=== PATIENT | female | born 1980 | race Caucasian/White ===

== ENCOUNTER 2023-03-20 13:34 | Inpatient (IN) | payer MEDICAID, OTHER ==
[~2023-03-20] VITALS: Ht 160 cm; Wt 83.9 kg
[~2023-03-20 13:34] MED LIST: DOCU-385 PO; FERR325T27 PO; FLUO20CA36 PO
[2023-03-20 15:34] LABS: BASOPHILS % (AUTO) 0.6 % (0.0-2.0); EOSINOPHILS % (AUTO) 1.6 % (1.0-6.0); HEMATOCRIT 28.5 % (36-46); HEMOGLOBIN 8.9 g/dL (12.0-16.0); LYMPHOCYTES # (AUTO) 1.6 K/uL (1.0-4.8); LYMPHOCYTES % (AUTO) 37.2 % (22.0-44.0); MEAN CORPUSCULAR HGB CONC 31.3 G/dL (31.0-37.0); MEAN CORPUSCULAR VOLUME 70 fL (80-100); MONOCYTES # (AUTO) 0.3 K/uL (0.1-1.0); MONOCYTES % (AUTO) 7.2 % (2.0-9.0); NEUTROPHILS # (AUTO) 2.2 K/uL (1.8-7.7); NEUTROPHILS % (AUTO) 53.4 % (40.0-70.0); PLATELET COUNT (AUTO) 279 K/uL (150-450); RED BLOOD CELL COUNT(AUTO) 4.06 MIL/uL (4.00-5.20); WHITE BLOOD COUNT (AUTO) 4.2 K/uL (4.5-11.0)
[2023-03-20 15:40] LABS: ANION GAP 11 mmol/L (8-16); CALCIUM, TOTAL 8.7 mg/dL (8.8-10.5); CARBON DIOXIDE 26 mmol/L (22-29); CHLORIDE 110 mmol/L (98-107); CREATININE 0.59 mg/dL (0.60-1.30); GLOMERULAR FILTR. RATE CALC > 60 mL/min (>60); GLUCOSE,RANDOM 95 mg/dL (70-110); POTASSIUM 3.8 mmol/L (3.5-5.1); SODIUM SERUM 147 mmol/L (136-145); UREA NITROGEN, BLOOD 7 mg/dL (7-18)
[2023-03-20 15:46] LABS: ALANINE AMINOTRANSFERASE 31 U/L (12-78); ALBUMIN 3.5 g/dL (3.4-5.0); ALKALINE PHOSPHATASE 105 U/L (46-116); ASPARTATE AMINOTRANSFERASE 34 U/L (15-37); BILIRUBIN,TOTAL 0.2 mg/dL (0.1-1.0); LIPASE 41 U/L (16-77); TOTAL PROTEIN, SERUM 7.1 g/dL (6.4-8.2)
[2023-03-20 15:47] LABS: ALCOHOL, BLOOD (SERUM) 255 mg/dL (0-10)
[2023-03-20 16:36] LABS: RBC MORPHOLOGY COMMENT DIMORPHIC RBC
[2023-03-20] MEDS ORDERED: DiphenhydrAMINE HCL 50 MG/ML VIAL IM ONE (16:45)
[2023-03-20] MEDS ORDERED: HALOPERIDOL LACTATE 5 MG/ML VIAL IM ONE (16:45)
[2023-03-20] MEDS ORDERED: LORazepam 2 MG/ML VIAL IM ONE (16:45)
[2023-03-20] MEDS ORDERED: QUEtiapine FUMARATE 100 MG TABLET PO PRN (17:15)
[2023-03-20] MEDS ORDERED: LORazepam 2 MG TABLET PO PRN (17:15)
[2023-03-20] MEDS ORDERED: ZOLPIDEM TARTRATE 10 MG TABLET PO PRN (17:15)
[2023-03-20 18:17] LABS: COVID AG,FIA SOURCE NASAL SWAB
[2023-03-20 18:55] LABS: SARS-COV2 (COVID) ANTIGEN,FIA Negative (Negative)
[2023-03-20 22:18] VITALS: BP 101/59; PULSE 104; PULSE 114; RESP 18; TEMP 97.6; O2SAT 97
[2023-03-21] VITALS (12 sets, daily range): BP systolic 16–116; BP diastolic 56–109; PULSE 56–83; RESP 16–18; TEMP 97–98; O2SAT 96–99
[2023-03-21] MEDS: FLUoxetine HCL 20 MG CAPSULE PO SCH (11:52)
[2023-03-21] MEDS ORDERED: GuaiFENesin/D-METHORPHAN [SUGAR-FREE] 200-20MG/10 ML SYRUP UDCUP PO PRN (13:45)
[2023-03-21] MEDS ORDERED: LOPERAMIDE HCL 2 MG CAPSULE PO PRN (13:45)
[2023-03-21] MEDS ORDERED: ALBUTEROL SULFATE HFA 90 MCG/PUFF 8 GM INHALER IH PRN (13:45)
[2023-03-21] MEDS ORDERED: MAG HYDROX/ALUMINUM HYD/SIMETH ES 30 ML SUSPENSION UDCUP PO PRN (13:45)
[2023-03-21] MEDS ORDERED: DOCUSATE SODIUM 100 MG CAPSULE PO PRN (13:45)
[2023-03-21] MEDS ORDERED: IBUPROFEN 400 MG TABLET PO PRN (13:45)
[2023-03-21] MEDS ORDERED: MAGNESIUM HYDROXIDE SUSPENSION 30 ML UDCUP PO PRN (13:45)
[2023-03-21] MEDS ORDERED: ACETAMINOPHEN 325 MG TABLET PO PRN (13:45)
[2023-03-21] MEDS ORDERED: NICOTINE 14 MG/24 HOUR PATCH TD PRN (13:45)
[2023-03-21] MEDS ORDERED: CloNIDine HCL 0.1 MG TABLET PO PRN (13:45)
[2023-03-21] MEDS ORDERED: PETROLATUM,WHITE 28 GM JELLY TP PRN (13:45)
[2023-03-21] MEDS ORDERED: ONDANSETRON HCL 4 MG TABLET PO PRN (13:45)
[2023-03-21] MEDS: FERROUS SULFATE 325 MG EC TABLET PO SCH (17:00)
[2023-03-22 00:12] VITALS: BP 112/74; PULSE 83; RESP 18; TEMP 98; O2SAT 97
[2023-03-22] MEDS: FERROUS SULFATE 325 MG EC TABLET PO SCH ×3 (06:38→16:53)
[2023-03-22 08:11] VITALS: BP 118/66; PULSE 79; RESP 16; TEMP 98; O2SAT 100
[2023-03-22] MEDS: FLUoxetine HCL 20 MG CAPSULE PO SCH (08:27)
[2023-03-22 09:08] LABS: HEMOGLOBIN A1C 4.7 % (3.8-5.6)
[2023-03-22 09:15] VITALS: BP 118/66; PULSE 79; RESP 16; TEMP 98; O2SAT 100
[2023-03-22 09:44] LABS: CHOL/HDL RATIO 1.7 (3.9-5.7); THYROID STIMULATING HORMONE 5.36 uIU/mL (0.36-3.74)
[2023-03-22 21:28] VITALS: BP 120/76; PULSE 77; RESP 18; TEMP 98; O2SAT 99
[2023-03-22 23:54] VITALS: BP 120/72; PULSE 76; RESP 17; TEMP 97.8; O2SAT 99
[2023-03-23] MEDS: FERROUS SULFATE 325 MG EC TABLET PO SCH ×2 (06:43→11:05)
[2023-03-23 08:19] VITALS: BP 124/71; PULSE 77; RESP 16; TEMP 97.6; O2SAT 99
[2023-03-23] MEDS: FLUoxetine HCL 20 MG CAPSULE PO SCH (08:21)
[2023-03-23] MEDS ORDERED: FERR325T27 PO (11:07)
[2023-03-23] MEDS ORDERED: FLUO20CA36 PO (11:07)
== END 2023-03-23 15:50 | disposition home or self-care (01) | DRG 751 ==
LOC: EMS 13:38 → B3A 20:30
PROVIDERS: ADMIT Psychiatry & Neurology Psychiatry; ATTEND Psychiatry & Neurology Psychiatry
PROC: GZHZZZZ Group Psychotherapy (ICD-10-PCS; principal; 2023-03-21)
DX: F33.2 Major depressive disorder, recurrent severe without psychotic features (principal); E87.0 Hyperosmolality and hypernatremia; D50.9 Iron deficiency anemia, unspecified; F17.210 Nicotine dependence, cigarettes, uncomplicated; K59.00 Constipation, unspecified; F10.129 Alcohol abuse with intoxication, unspecified; Z20.822 Contact with and (suspected) exposure to COVID-19; Z79.899 Other long term (current) drug therapy; Z98.891 History of uterine scar from previous surgery
CPT/HCPCS: 80053; 80061; 83036; 83690; 84443; 84703; 85025; 99291; G0480; J1200; J1630; J2060

== ENCOUNTER 2023-07-05 21:56 | Emergency (ER) | payer MEDICAID, OTHER ==
[~2023-07-05 21:56] MED LIST changes: -DOCU-385 PO
[2023-07-06] MEDS: ACETAMINOPHEN 500 MG TABLET PO ONE ×2 (00:30→05:41)
[2023-07-06 02:44] VITALS: TEMP 98.7
[2023-07-06] MEDS: IBUPROFEN 600 MG TABLET PO ONE (04:39)
[2023-07-06] MEDS ORDERED: IBUP-1492 PO (06:57)
[2023-07-06 07:10] VITALS: BP 125/71; PULSE 73; RESP 16
== END 2023-07-06 07:25 | disposition home or self-care (01) ==
LOC: EMS 21:58
DX: S00.83XA Contusion of other part of head, initial encounter (principal); F32.A Depression, unspecified; F17.210 Nicotine dependence, cigarettes, uncomplicated; F10.90 Alcohol use, unspecified, uncomplicated; Z98.890 Other specified postprocedural states; Y08.89XA Assault by other specified means, initial encounter; Y93.89 Activity, other specified; Y92.89 Other specified places as the place of occurrence of the external cause; Y99.8 Other external cause status
CPT/HCPCS: 70450; 70486; 72125; 84703; 99284

== ENCOUNTER 2023-09-21 20:53 | Emergency (ER) | payer SELFPAY ==
[~2023-09-21] VITALS: Ht 157.5 cm; Wt 91.0 kg
[~2023-09-21 20:53] MED LIST changes: +FLUO-418 PO; -FLUO20CA36 PO; +IBUP-1492 PO
[2023-09-21 20:59] VITALS: TEMP 98.2
[2023-09-22 02:02] VITALS: BP 116/62; PULSE 65; RESP 18
[2023-09-22] MEDS ORDERED: IBUP-1554 PO (02:15)
== END 2023-09-22 02:30 | disposition home or self-care (01) ==
LOC: EMS 20:53
DX: S90.121A Contusion of right lesser toe(s) without damage to nail, initial encounter (principal); W22.8XXA Striking against or struck by other objects, initial encounter; Y93.89 Activity, other specified; Y92.89 Other specified places as the place of occurrence of the external cause; Y99.8 Other external cause status
CPT/HCPCS: 99283

== ENCOUNTER 2023-12-17 06:44 | Inpatient (IN) | payer SELFPAY ==
[~2023-12-17] VITALS: Ht 157.5 cm; Wt 86.1 kg
[~2023-12-17 06:44] MED LIST changes: +IBUP-1554 PO
[2023-12-17 08:25] VITALS: O2SAT 100
[2023-12-17] MEDS: ChlordiazePOXIDE HCL 25 MG CAPSULE PO ONE (08:32)
[2023-12-17 08:34] LABS: COVID AG,FIA SOURCE NASAL SWAB
[2023-12-17 08:36] LABS: BASOPHILS % (AUTO) 0.4 % (0.0-2.0); EOSINOPHILS % (AUTO) 0.9 % (1.0-6.0); HEMATOCRIT 29.4 % (36-46); LYMPHOCYTES # (AUTO) 1.5 K/uL (1.0-4.8); LYMPHOCYTES % (AUTO) 37.2 % (22.0-44.0); MEAN CORPUSCULAR HEMOGLOBIN 20.2 pg (26.0-34.0); MEAN CORPUSCULAR HGB CONC 30.6 G/dL (31.0-37.0); MEAN CORPUSCULAR VOLUME 66 fL (80-100); MONOCYTES # (AUTO) 0.3 K/uL (0.1-1.0); MONOCYTES % (AUTO) 6.1 % (2.0-9.0); NEUTROPHILS # (AUTO) 2.3 K/uL (1.8-7.7); NEUTROPHILS % (AUTO) 55.4 % (40.0-70.0); PLATELET COUNT (AUTO) 360 K/uL (150-450); RED BLOOD CELL COUNT(AUTO) 4.46 MIL/uL (4.00-5.20); RED CELL DISTRIBUTION WIDTH 20.6 % (11.5-14.5); WHITE BLOOD COUNT (AUTO) 4.1 K/uL (4.5-11.0)
[2023-12-17 08:39] LABS: RBC MORPHOLOGY COMMENT ABNORMAL RBC MORPH
[2023-12-17 08:45] LABS: ANION GAP 10 mmol/L (8-16); CALCIUM, TOTAL 7.9 mg/dL (8.8-10.5); CARBON DIOXIDE 26 mmol/L (22-29); CHLORIDE 106 mmol/L (98-107); CREATININE 0.63 mg/dL (0.60-1.30); GLOMERULAR FILTR. RATE CALC > 60 mL/min (>60); GLUCOSE,RANDOM 85 mg/dL (70-110); POTASSIUM 3.8 mmol/L (3.5-5.1); SODIUM SERUM 142 mmol/L (136-145); UREA NITROGEN, BLOOD 9 mg/dL (7-18)
[2023-12-17 08:47] LABS: ALCOHOL, BLOOD (SERUM) 194 mg/dL (0-10)
[2023-12-17 08:57] LABS: SARS-COV2 (COVID) ANTIGEN,FIA Negative (Negative)
[2023-12-17] MEDS ORDERED: MAG HYDROX/ALUMINUM HYD/SIMETH ES 30 ML SUSPENSION UDCUP PO PRN (11:00)
[2023-12-17] MEDS ORDERED: HydrOXYzine PAMOATE 50 MG CAPSULE PO PRN (11:00)
[2023-12-17] MEDS ORDERED: GuaiFENesin/D-METHORPHAN [SUGAR-FREE] 200-20MG/10 ML SYRUP UDCUP PO PRN (11:00)
[2023-12-17] MEDS ORDERED: MAGNESIUM HYDROXIDE SUSPENSION 30 ML UDCUP PO PRN (11:00)
[2023-12-17] MEDS ORDERED: LOPERAMIDE HCL 2 MG CAPSULE PO PRN (11:00)
[2023-12-17] MEDS ORDERED: TUBERCULIN, PURIFIED PROTEIN DERIVATIVE 5 TU/0.1 ML SYRINGE ID ONE (11:00)
[2023-12-17] MEDS ORDERED: PROMETHAZINE HCL 25 MG TABLET PO PRN (11:00)
[2023-12-17] MEDS: LORazepam 2 MG TABLET PO PRN (12:17)
[2023-12-17] MEDS: QUEtiapine FUMARATE 100 MG TABLET PO PRN (12:17)
[2023-12-17 12:45] LABS: ALCOHOL, URINE DRUG SCREEN POSITIVE (NEGATIVE); AMPHET/METH SCREEN,URINE NEGATIVE (NEGATIVE); BARBITURATE SCREEN, URINE NEGATIVE (NEGATIVE); BENZODIAZEPINES SCREEN,URINE NEGATIVE (NEGATIVE); CANNABINOID SCREEN,URINE NEGATIVE (NEGATIVE); COCAINE SCREEN,URINE NEGATIVE (NEGATIVE); METHADONE SCREEN, URINE NEGATIVE (NEGATIVE); OPIATE SCREEN,URINE NEGATIVE (NEGATIVE); PHENCYCLIDINE SCREEN,URINE NEGATIVE (NEGATIVE)
[2023-12-17] MEDS: MELATONIN 5 MG TABLET PO SCH (20:46)
[2023-12-17] MEDS: THIAMINE 100 MG TABLET PO SCH (20:46)
[2023-12-17] MEDS: CYANOCOBALAMIN 1,000 MCG/ML VIAL IM ONE (20:46)
[2023-12-17] MEDS: PRAZOSIN HCL 1 MG CAPSULE PO SCH (20:48)
[2023-12-18] VITALS (11 sets, daily range): BP systolic 99–115; BP diastolic 60–73; PULSE 66–90; RESP 16–18; TEMP 97.3–97.9; O2SAT 97–99
[2023-12-18] MEDS: ZOLPIDEM TARTRATE 10 MG TABLET PO PRN (02:59)
[2023-12-18] MEDS ORDERED: INFLUENZA VIRUS VACCINE TVS (6MO+) 2024-25/PF 45 MCG/0.5 ML SYRINGE IM. ONE (04:00)
[2023-12-18] MEDS: LORazepam 2 MG TABLET PO SCH (08:00)
[2023-12-18] MEDS: OMEGA-3/DHA/EPA/FISH OIL 1,000 MG CAPSULE PO SCH (08:00)
[2023-12-18] MEDS: NALTREXONE HCL 50 MG TABLET PO SCH (08:00)
[2023-12-18] MEDS: MULTIVITAMINS WITH MINERALS, THERAPEUTIC TABLET PO SCH (08:00)
[2023-12-18] MEDS: DULoxetine HCL 20 MG CAPSULE PO SCH (08:00)
[2023-12-18] MEDS: FOLIC ACID 1 MG TABLET PO SCH (08:00)
[2023-12-18 08:34] LABS: HEMOGLOBIN A1C 5.6 % (3.8-5.6)
[2023-12-18 08:48] LABS: ALANINE AMINOTRANSFERASE 23 U/L (12-78); ALBUMIN 2.9 g/dL (3.4-5.0); ALKALINE PHOSPHATASE 86 U/L (46-116); ANION GAP 9 mmol/L (8-16); ASPARTATE AMINOTRANSFERASE 20 U/L (15-37); BILIRUBIN,TOTAL 0.4 mg/dL (0.1-1.0); CALCIUM, TOTAL 8.3 mg/dL (8.8-10.5); CARBON DIOXIDE 27 mmol/L (22-29); CHLORIDE 106 mmol/L (98-107); CHOL/HDL RATIO 1.7 (3.9-5.7); CHOLESTEROL 133 mg/dL (131-200); CREATININE 0.59 mg/dL (0.60-1.30); FREE T4 (FREE THYROXINE) 0.76 ng/dL (0.76-1.46); GLOMERULAR FILTR. RATE CALC > 60 mL/min (>60); GLUCOSE,RANDOM 85 mg/dL (70-110); HDL CHOLESTEROL 80 mg/dL (40-60); LDL CHOL (CALC.) 42 mg/dL (0-130); POTASSIUM 4.1 mmol/L (3.5-5.1); SODIUM SERUM 142 mmol/L (136-145); THYROID STIMULATING HORMONE 1.56 uIU/mL (0.36-3.74); TOTAL PROTEIN, SERUM 6.1 g/dL (6.4-8.2); TRIGLYCERIDES 54 mg/dL (15-150); UREA NITROGEN, BLOOD 15 mg/dL (7-18)
[2023-12-18] MEDS: FERROUS SULFATE 325 MG EC TABLET PO SCH (12:10)
[2023-12-19] MEDS: LORazepam 2 MG TABLET PO PRN (03:41)
[2023-12-19] MEDS: IBUPROFEN 600 MG TABLET PO PRN (04:19)
[2023-12-19 04:21] VITALS: BP 108/61; PULSE 84; RESP 17; TEMP 97.6; O2SAT 98
[2023-12-19 08:47] VITALS: BP 108/65; PULSE 100; RESP 18; TEMP 97.9; O2SAT 97
[2023-12-19 12:33] VITALS: BP 106/64; PULSE 87; RESP 16; TEMP 97.9; O2SAT 98
[2023-12-19] MEDS ORDERED: PRAZ1 PO (15:40)
[2023-12-19] MEDS ORDERED: OMEG100033 PO (15:40)
[2023-12-19] MEDS ORDERED: MELA5TAB40 PO (15:40)
[2023-12-19] MEDS ORDERED: NALT50TA33 PO (15:40)
[2023-12-19] MEDS ORDERED: ESCI20TA87 PO (15:40)
[2023-12-19 20:36] VITALS: BP 125/81; PULSE 95; RESP 17; TEMP 97.8; O2SAT 95
[2023-12-19 23:03] VITALS: BP 106/70; PULSE 84; RESP 18; TEMP 97.2; O2SAT 98
[2023-12-20] MEDS: ACETAMINOPHEN 325 MG TABLET PO PRN (04:04)
[2023-12-20 04:06] VITALS: BP 127/74; PULSE 92; RESP 16; TEMP 97.9; O2SAT 98
[2023-12-20] MEDS ORDERED: LORazepam 1 MG TABLET PO PRN (07:00)
[2023-12-20] MEDS: LORazepam 1 MG TABLET PO SCH (08:25)
[2023-12-20] MEDS: ESCITALOPRAM OXALATE 20 MG TABLET PO SCH (08:25)
[2023-12-20 08:36] VITALS: BP 121/79; PULSE 74; RESP 16; TEMP 98; O2SAT 98
[2023-12-20] MEDS ORDERED: DULoxetine HCL 30 MG CAPSULE PO SCH (09:00)
[2023-12-20 10:01] VITALS: BP 112/82; PULSE 78; RESP 17; TEMP 97.8; O2SAT 99
[2023-12-20] MEDS ORDERED: LOPERAMIDE HCL 2 MG CAPSULE PO PRN (11:00)
[2023-12-21] MEDS ORDERED: LORazepam 1 MG TABLET PO PRN (07:00)
== END 2023-12-20 17:11 | disposition home or self-care (01) | DRG 885 ==
LOC: EMS 06:44 → B3A 12-18 00:02
PROVIDERS: ADMIT Psychiatry & Neurology Psychiatry; ATTEND Psychiatry & Neurology Psychiatry
PROC: GZHZZZZ Group Psychotherapy (ICD-10-PCS; principal; 2023-12-19)
PROC: GZ58ZZZ Individual Psychotherapy, Cognitive-Behavioral (ICD-10-PCS; 2023-12-19)
DX: F33.2 Major depressive disorder, recurrent severe without psychotic features (principal); R45.851 Suicidal ideations; D64.9 Anemia, unspecified; E83.51 Hypocalcemia; F11.90 Opioid use, unspecified, uncomplicated; F17.210 Nicotine dependence, cigarettes, uncomplicated; Z20.822 Contact with and (suspected) exposure to COVID-19; F41.0 Panic disorder [episodic paroxysmal anxiety]; F43.10 Post-traumatic stress disorder, unspecified; J44.9 Chronic obstructive pulmonary disease, unspecified; R56.9 Unspecified convulsions; F10.20 Alcohol dependence, uncomplicated; Z91.199 Patient's noncompliance with other medical treatment and regimen due to unspecified reason
CPT/HCPCS: 80048; 80053; 80061; 80307; 83036; 84439; 84443; 84703; 85025; 86592; 99285; G0480; J3420

== ENCOUNTER 2024-12-13 05:19 | Emergency (ER) | payer OTHER ==
[~2024-12-13] VITALS: Ht 157.5 cm; Wt 86.3 kg
[~2024-12-13 05:19] MED LIST changes: +ESCI20TA87 PO; -FERR325T27 PO; -FLUO-418 PO; -IBUP-1492 PO; -IBUP-1554 PO; +MELA5TAB40 PO; +NALT50TA33 PO; +OMEG100033 PO; +PRAZ1 PO
[2024-12-13 05:37] VITALS: TEMP 97.9
[2024-12-13] MEDS ORDERED: MICO57CR2 TP (06:16)
[2024-12-13] MEDS ORDERED: ACET-66 PO (06:16)
[2024-12-13] MEDS ORDERED: CEPH-558 PO (06:16)
[2024-12-13] MEDS: ACETAMINOPHEN 500 MG TABLET PO ONE (06:26)
[2024-12-13] MEDS: CEPHALEXIN MONOHYDRATE 500 MG CAPSULE PO ONE (06:26)
[2024-12-13 06:30] VITALS: BP 129/65; PULSE 63; RESP 16; O2SAT 100
== END 2024-12-13 07:06 | disposition home or self-care (01) ==
LOC: EMS 05:19
DX: L02.612 Cutaneous abscess of left foot (principal); L03.116 Cellulitis of left lower limb; F32.A Depression, unspecified; F12.90 Cannabis use, unspecified, uncomplicated; F17.210 Nicotine dependence, cigarettes, uncomplicated; F10.90 Alcohol use, unspecified, uncomplicated; Z79.899 Other long term (current) drug therapy; Y90.9 Presence of alcohol in blood, level not specified
CPT/HCPCS: 99283

== ENCOUNTER 2025-01-28 03:23 | Emergency (ER) | payer OTHER ==
[~2025-01-28] VITALS: Ht 157.5 cm; Wt 79.5 kg
[~2025-01-28 03:23] MED LIST changes: +ACET-66 PO; +CEPH-558 PO; +MICO57CR2 TP
[2025-01-28 03:26] VITALS: BP 115/75; PULSE 82; RESP 16; TEMP 97.9; O2SAT 100
[2025-01-28] MEDS: LIDOCAINE 1% 10 ML VIAL SQ ONE (04:52)
[2025-01-28] MEDS ORDERED: CLIN-142 PO (06:17)
== END 2025-01-28 06:29 | disposition home or self-care (01) ==
LOC: EMS 03:29
DX: L02.415 Cutaneous abscess of right lower limb (principal); L03.115 Cellulitis of right lower limb; F32.A Depression, unspecified; F12.90 Cannabis use, unspecified, uncomplicated; F17.210 Nicotine dependence, cigarettes, uncomplicated; Z79.899 Other long term (current) drug therapy; Z98.84 Bariatric surgery status
CPT/HCPCS: 99283; 10060; J3490

== ENCOUNTER 2025-01-30 01:36 | Emergency (ER) | payer OTHER ==
[~2025-01-30] VITALS: Ht 157.5 cm; Wt 80.0 kg
[~2025-01-30 01:36] MED LIST changes: +CLIN-142 PO
[2025-01-30 01:53] VITALS: BP 102/72; PULSE 85; RESP 18; TEMP 97.7; O2SAT 98
== END 2025-01-30 03:01 | disposition home or self-care (01) ==
LOC: EMS 01:47
DX: L02.415 Cutaneous abscess of right lower limb (principal); F32.A Depression, unspecified; F17.210 Nicotine dependence, cigarettes, uncomplicated; F12.90 Cannabis use, unspecified, uncomplicated; Z48.01 Encounter for change or removal of surgical wound dressing; Z79.899 Other long term (current) drug therapy; Z98.84 Bariatric surgery status
CPT/HCPCS: 99282; Z7502